=== PATIENT | female | born 1950 | race Caucasian/White ===

== ENCOUNTER → 2019-12-08 | Outpatient (CLI) | payer MEDICARE ==
--- NOTE | 2019-12-08 18:35 | RAD ---
Examination: 1. Left superior thyroid lobe fine needle biopsy. 2. Left mid thyroid lobe fine needle biopsy. 3. Right thyroid lobe fine needle biopsy. INDICATION: Tube left thyroid lobe nodules requested for biopsy and 1 right thyroid lobe nodule requested for biopsy based on suspicious imaging appearances on prior ultrasound. COMPARISON: 11/09/2019 thyroid ultrasound TECHNIQUE AND FINDINGS: Informed consent was obtained and an appropriate procedural pause observed. Using fresh sterile needles for each target lesion in 3 successive biopsies, sterile technique, ultrasound guidance and local anesthesia was utilized in targeting first the superior left thyroid lobe nodule with 5 passes using a 25-gauge needle, then the mid left thyroid lobe nodule with 2 passes, and finally the right thyroid lobe with 2 passes. A radiographic technologist was present to assess adequacy of tissue sampling throughout the procedure and tissue sampling was performed until the radiographic technologist confirmed adequate tissue sampling for each lesion. Patient tolerated the procedure without incident. There were no apparent complications. The puncture sites were dressed and the postprocedure instructions were reviewed prior to patient discharge. IMPRESSION: Successful ultrasound-guided core needle biopsy of 2 left-sided and one right-sided thyroid lobe nodule. Pathology results are pending. Electronically signed by: Mali Castillo MD (12/08/2019 6:32 PM) [id number]
--- NOTE | 2019-12-08 18:35 | RAD ---
Examination: 1. Left superior thyroid lobe fine needle biopsy. 2. Left mid thyroid lobe fine needle biopsy. 3. Right thyroid lobe fine needle biopsy. INDICATION: Tube left thyroid lobe nodules requested for biopsy and 1 right thyroid lobe nodule requested for biopsy based on suspicious imaging appearances on prior ultrasound. COMPARISON: 11/09/2019 thyroid ultrasound TECHNIQUE AND FINDINGS: Informed consent was obtained and an appropriate procedural pause observed. Using fresh sterile needles for each target lesion in 3 successive biopsies, sterile technique, ultrasound guidance and local anesthesia was utilized in targeting first the superior left thyroid lobe nodule with 5 passes using a 25-gauge needle, then the mid left thyroid lobe nodule with 2 passes, and finally the right thyroid lobe with 2 passes. A chief medical technologist was present to assess adequacy of tissue sampling throughout the procedure and tissue sampling was performed until the chief medical technologist confirmed adequate tissue sampling for each lesion. Patient tolerated the procedure without incident. There were no apparent complications. The puncture sites were dressed and the postprocedure instructions were reviewed prior to patient discharge. IMPRESSION: Successful ultrasound-guided core needle biopsy of 2 left-sided and one right-sided thyroid lobe nodule. Pathology results are pending. Electronically signed by: Mali Castillo MD (12/08/2019 6:32 PM) [id number]
--- NOTE | 2019-12-08 18:35 | RAD ---
Examination: 1. Left superior thyroid lobe fine needle biopsy. 2. Left mid thyroid lobe fine needle biopsy. 3. Right thyroid lobe fine needle biopsy. INDICATION: Tube left thyroid lobe nodules requested for biopsy and 1 right thyroid lobe nodule requested for biopsy based on suspicious imaging appearances on prior ultrasound. COMPARISON: 11/09/2019 thyroid ultrasound TECHNIQUE AND FINDINGS: Informed consent was obtained and an appropriate procedural pause observed. Using fresh sterile needles for each target lesion in 3 successive biopsies, sterile technique, ultrasound guidance and local anesthesia was utilized in targeting first the superior left thyroid lobe nodule with 5 passes using a 25-gauge needle, then the mid left thyroid lobe nodule with 2 passes, and finally the right thyroid lobe with 2 passes. A certified neurodiagnostic technologist was present to assess adequacy of tissue sampling throughout the procedure and tissue sampling was performed until the certified neurodiagnostic technologist confirmed adequate tissue sampling for each lesion. Patient tolerated the procedure without incident. There were no apparent complications. The puncture sites were dressed and the postprocedure instructions were reviewed prior to patient discharge. IMPRESSION: Successful ultrasound-guided core needle biopsy of 2 left-sided and one right-sided thyroid lobe nodule. Pathology results are pending. Electronically signed by: Mali Castillo MD (12/08/2019 6:32 PM) [id number]
--- NOTE | 2019-12-09 12:07 | PATHOLOGY ---
Note [facility] Accession Number: [id number] TESTS RESULT FLAG UNITS REF RANGE LAB Clinician Provided Cytology Information No. of containers..01 Other (Miscellaneous) Source: LT SUPERIOR THYROID DIAGNOSIS: LT SUPERIOR THYROID NEGATIVE FOR MALIGNANT CELLS. BETHESDA CATEGORY II. SPECIMEN CONSISTS OF BENIGN FOLLICULAR CELLS, HEMOSIDERIN-LADEN MACROPHAGES, COLLOID, AND BLOOD. THIS PATTERN IS CONSISTENT WITH A COLLOID NODULE. THIS INTERPRETATION INCLUDES EVALUATION OF A CELL BLOCK. COLLOID IS PRESENT. Pathologist ICD10: 02 E04.1 Signed out by: Jesús Carranza MD, Pathologist NPI- [id number] Performed by: Tierra Nuñez, Warehouse Team Member ([facility]) Gross description: 01 30ML, CLEAR COLORLESS, 2F 2A 2HE /LCS 12/08/2019 1838 Local FLAG LEGEND: L-Low Normal,H-High Normal,LL-Alert Low,HH-Alert High <-Panic Low,>-Panic High,A-Abnormal,AA-Critical Abnormal Performed at: [facility] [address] [place] [address] Rasta Barth MD, [facility] [address] [address] Jesús Carranza MD, Specimen Comment: A courtesy copy of this report has been sent to [phone], [phone]- Specimen Comment: [id number], Specimen Comment: [id number] Specimen Comment: Report sent to ,DR KEENE / DR ALEXANDER Specimen Comment: A duplicate report has been generated due to demographic updates. Performed at: [address], [place], [place] [id number] MD Rasta Barth MD Phone: [phone]
--- NOTE | 2019-12-09 12:07 | PATHOLOGY ---
Note [facility] Accession Number: [id number] TESTS RESULT FLAG UNITS REF RANGE LAB Clinician Provided Cytology Information No. of containers..01 Other (Miscellaneous) Source: LT MID THYROID DIAGNOSIS: LT MID THYROID NEGATIVE FOR MALIGNANT CELLS. COLLOID IS PRESENT. THIS INTERPRETATION INCLUDES EVALUATION OF A CELL BLOCK. THIN HYPOCELLULAR SMEAR(S) CONSIDERED ONLY MARGINALLY ADEQUATE FOR VALID CYTOPATHOLOGIC INTERPRETATION. PLEASE REPEAT FOR FURTHER STUDY AND CONFIRMATION. Signed out by: Jesús Carranza MD, Pathologist NPI- [id number] Performed by: Tierra Nuñez, Sales Team Recruiter ([facility]) Gross description: 01 30ML, CLEAR PINK, 2F 2A 2HE /LCS 12/08/2019 1840 Local FLAG LEGEND: L-Low Normal,H-High Normal,LL-Alert Low,HH-Alert High <-Panic Low,>-Panic High,A-Abnormal,AA-Critical Abnormal Performed at: [facility] [address] [place] [address] [address] [place] [address] Rasta Barth MD, [facility] [address] [address] Jesús Carranza MD, Specimen Comment: A courtesy copy of this report has been sent to [phone], [phone]- Specimen Comment: [id number], Specimen Comment: [id number] Specimen Comment: Report sent to ,DR KEENE / DR ALEXANDER Specimen Comment: A duplicate report has been generated due to demographic updates. Performed at: [address], [place], [place] [id number] MD Rasta Barth MD Phone: [phone]
--- NOTE | 2019-12-09 12:07 | PATHOLOGY ---
Note [facility] Accession Number: [id number] TESTS RESULT FLAG UNITS REF RANGE LAB Clinician Provided Cytology Information No. of containers..01 Other (Miscellaneous) Source: RT LATERAL THYROID DIAGNOSIS: RT LATERAL THYROID NEGATIVE FOR MALIGNANT CELLS. BETHESDA CATEGORY II. SPECIMEN CONSISTS OF BENIGN FOLLICULAR CELLS, HEMOSIDERIN-LADEN MACROPHAGES, COLLOID, AND BLOOD. THIS PATTERN IS CONSISTENT WITH A COLLOID NODULE. COLLOID IS PRESENT. RED BLOOD CELLS ARE PRESENT. THIS INTERPRETATION INCLUDES EVALUATION OF A CELL BLOCK. Pathologist ICD10: 02 E04.1 Signed out by: 02 Jesús Carranza MD, Pathologist NPI- [id number] Performed by: Svetlana Carmen, Twister Operator ([facility]) Gross description: 01 30ML, CLEAR PINK, 2F 2A 2HE /LCS 12/08/2019 1835 Local FLAG LEGEND: L-Low Normal,H-High Normal,LL-Alert Low,HH-Alert High <-Panic Low,>-Panic High,A-Abnormal,AA-Critical Abnormal Performed at: [facility] [address] [place] [address] Rasta Barth MD, 02 [facility] [address] [address] Jesús Carranza MD, Specimen Comment: A courtesy copy of this report has been sent to [phone], [phone]- Specimen Comment: [id number], Specimen Comment: [id number] Specimen Comment: Report sent to ,DR KEENE / DR ALEXANDER Specimen Comment: A duplicate report has been generated due to demographic updates. Performed at: [address], [place], [place] [id number] MD Rasta Barth MD Phone: [phone]
== END | disposition home or self-care (01) ==
LOC: US 12:24
PROVIDERS: ATTEND Surgery
DX: E04.2 Nontoxic multinodular goiter (principal)
CPT/HCPCS: 10005; 10006; 60300; 76942; 88173; 88305